=== PATIENT | female | born 1995 | race African-American/Black ===

== ENCOUNTER 2019-04-19 18:55 | Emergency (ER) | payer BC ==
--- OUTSIDE RECORDS SUMMARY | 2019-04-19 18:57 | XMS REPORT ---
:1995 [facility] [address] Renteria [address] [place] [id number] Care Team Providers Name Role Phone Unavailable Unavailable Unavailable Problems This patient has no known problems. Allergies, Adverse Reactions, Alerts This patient has no known allergies or adverse reactions. Medications This patient has no known medications. Encounters Start End Encounter Admission Attending Care Care Encounter Date/Time Date/Time Type Type Clinicians Facility Department ID 2019-02-28 2019-02-28 Emergency E [facility] [id number] 20:30:00 20:30:00
[2019-04-19] MEDS ORDERED: NA CHLORIDE 0.9% 1,000 ML ONE (19:14)
[2019-04-19] MEDS ORDERED: PANTOPRAZOLE 40 MG INJ ONE (19:14)
[2019-04-19 19:26] LABS: Absolute Lymphocytes (CBC) 1.5 K/uL (0.7-4.9); Absolute Monocytes 0.7 K/uL (0.1-1.3); Absolute Neutrophil 9.5 K/uL (1.8-8.0); Basophils % 0.4 % (0-1.3); Eosinophils % 0.3 % (0-4.4); Hematocrit 28.9 % (36.0-45.0); MPV 11.1 fL (7.6-11.3); Monocytes % 6.3 % (3.3-12.3); RBC Red Blood Cell Count 3.59 M/uL (3.86-4.86)
[2019-04-19] MEDS ORDERED: ONDANSETRON 4 MG/2 ML VIAL ONE (19:26)
[2019-04-19 19:27] LABS: Protime INR 1.27
--- NOTE | 2019-04-19 19:36 | RAD REPORT ---
EXAM DESCRIPTION: RAD - Chest Single View - 04/19/2019 7:19 pm CLINICAL HISTORY: CHEST PAIN Chest pain. COMPARISON: <Comparisons> FINDINGS: Portable technique limits examination quality. The lungs are grossly clear. The heart is normal in size. No displaced fractures. IMPRESSION: No acute intrathoracic process suspected.
[2019-04-19 19:44] LABS: ALT/SGPT 154 U/L (12-78); AST/SGOT 93 U/L (15-37); Albumin 3.3 g/dL (3.4-5.0); Alkaline Phosphatase 293 U/L (45-117); BUN Blood Urea Nitrogen 26 mg/dL (7-18); Bicarbonate 21 mmol/L (21-32); Bilirubin Direct 0.4 mg/dL (0-0.2); Bilirubin Total 1.3 mg/dL (0.2-1.0); Glucose Level 117 mg/dL (74-106); Lipase 111 U/L (73-393); Magnesium 2.1 mg/dL (1.8-2.4); Potassium 4.3 mmol/L (3.5-5.1); Protein, Total 6.7 g/dL (6.4-8.2); Sodium Level 142 mmol/L (136-145); Troponin (Emerg Dept Use Only) < 0.02 ng/mL (0.0-0.045)
[2019-04-19 19:47] LABS: NT PRO-BNP < 5 pg/mL (<125)
--- NOTE | 2019-04-19 23:17 | ER ---
Nurse's Notes [facility] Name: Ya Mckeon Age: 23 yrs Sex: Female : 1995 Arrival Date: 04/19/2019 Time: 19:00 Bed 7 Private MD: Diagnosis: Hematemesis Presentation: 04/19 19:01 Presenting complaint: Vomiting blood since this afternoon, approx 500 ml bright red hb bloody vomitus noted in emesis bag upon presentation to ED. Transition of care: patient was not received from another setting of care. Onset of symptoms was April 19, 2019. Risk Assessment: Do you want to hurt yourself or someone else? Patient reports no desire to harm self or others. Care prior to arrival: None. 19:01 Method Of Arrival: Ambulatory hb 19:01 Acuity: SHANIQUE 2 hb 23:09 Initial Sepsis Screen: Does the patient meet any 2 criteria? No. Patient's initial mg2 sepsis screen is negative. Does the patient have a suspected source of infection? No. Patient's initial sepsis screen is negative. 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 - Social history:: Smoking status: Patient/guardian denies using tobacco, Patient/guardian denies using alcohol, street drugs, IV drugs. - Ebola Screening: : No symptoms or risks identified at this time. Screenin:30 Abuse screen: Denies threats or abuse. Denies injuries from another. Nutritional mg2 screening: No deficits noted. Tuberculosis screening: No symptoms or risk factors identified. Fall Risk IV access (20 points). Assessment: 19:26 General: Appears in no apparent distress. comfortable, Behavior is calm, cooperative. mg2 Pain: Complains of pain in abdomen Pain does not radiate. Pain currently is 8 out of 10 on a pain scale. Quality of pain is described as aching, Pain began gradually, since 8 am Is intermittent. Neuro: Level of Consciousness is awake, alert, obeys commands, Oriented to person, place, time, situation. Cardiovascular: Capillary refill < 3 seconds Patient's skin is warm and dry. Respiratory: Airway is patent Respiratory effort is even, unlabored, Respiratory pattern is regular, symmetrical. GI: Pt is actively vomiting dark red blood Reports vomiting, since 8 am. GI: Reports lower abdominal pain, upper abdominal pain. : No signs and/or symptoms were reported regarding the genitourinary system. EENT: No signs and/or symptoms were reported regarding the EENT system. Derm: Skin is intact, is healthy with good turgor, Skin is normal. Musculoskeletal: Circulation, motion, and sensation intact. Capillary refill < 3 seconds. 21:47 Reassessment: patient still in ct scan. mg2 21:59 Reassessment: Patient appears in no apparent distress at this time. Patient and/or mg2 family updated on plan of care and expected duration. Pain level reassessed. Patient is alert, oriented x 3, equal unlabored respirations, skin warm/dry/pink. 22:39 Reassessment: Patient appears in no apparent distress at this time. Patient and/or mg2 family updated on plan of care and expected duration. Pain level reassessed. Patient is alert, oriented x 3, equal unlabored respirations, skin warm/dry/pink. no complaints noted. 04/20 00:25 Reassessment: report given to [facility]. patient ws conversant, feeling mg2 better, GCS 15/15. Vital Signs: 04/19 19:01 BP 121 / 80; Pulse 143; Resp 16; Temp 98.1; Pulse Ox 100% on R/A; Weight 58.97 kg; mg2 Height 5 ft. 7 in. (170.18 cm); Pain 10/10; 21:03 BP 137 / 99; Pulse 103; Resp 18; Pulse Ox 100% on R/A; mg2 21:57 BP 110 / 61; Pulse 104; Resp 18; Pulse Ox 100% on R/A; Pain 5/10; mg2 22:35 BP 115 / 62; Pulse 102; Resp 18; Temp 98.1; Pulse Ox 100% on R/A; mg2 04/20 00:04 BP 130 / 66; Pulse 101; Resp 18; Temp 97.9(TE); Pulse Ox 100% on R/A; Pain 8/10; mg2 04/19 19:01 Body Mass Index 20.36 (58.97 kg, 170.18 cm) mg2 ED Course: 04/19 19:00 Patient arrived in ED. ch 19:01 Triage completed. hb 19:01 Arm band placed on. hb 19:04 Trey Mario PA is PHCP. [facility] 19:04 Melvin Isbell MD is Attending Physician. [facility] 19:06 Ian Bean, RN is Primary Nurse. mg2 19:18 XRAY Chest (1 view) In Process Unspecified. EDMS 19:30 No provider procedures requiring assistance completed. Inserted saline lock: 18 gauge mg2 in right antecubital area, using aseptic technique. Blood collected. 21:45 CT Chest For PE Angio In Process Unspecified. EDMS 21:48 CT Abd/Pelvis - IV Contrast Only In Process Unspecified. EDMS 23:09 Patient has correct armband on for positive identification. mg2 04/20 00:27 Patient transferred, IV remains in place. mg2 Administered Medications: 04/19 19:06 Drug: NS 0.9% 1000 ml Route: IV; Rate: 1 bolus; Site: right antecubital; mg2 20:38 Follow up: Response: No adverse reaction; IV Status: Completed infusion; IV Intake: mg2 1000ml 19:06 Drug: ProTONIX 40 mg Route: IVP; Site: right antecubital; mg2 20:38 Follow up: Response: No adverse reaction; Marked relief of symptoms mg2 19:26 Drug: Zofran 4 mg Route: IVP; Site: right antecubital; mg2 20:38 Follow up: Response: No adverse reaction; Marked relief of symptoms mg2 23:33 Drug: Rocephin - (cefTRIAXone) 1 grams Route: IVPB; Infused Over: 30 mins; Site: right mg2 antecubital; 04/20 00:04 Follow up: Response: No adverse reaction; IV Status: Completed infusion mg2 04/19 23:34 Drug: Octreotide Infusion (50 mcg/hr) - (Octreotide 500 mcg, NS 0.9% 500 ml) Route: IV; mg2 Rate: 50 ml/hr; Site: right antecubital; 04/20 00:27 Follow up: Response: No adverse reaction; IV Status: Infusion continued upon transfer mg2 00:04 Drug: Zofran 4 mg Route: IVP; Site: right antecubital; mg2 00:27 Follow up: Response: No adverse reaction; Nausea is decreased mg2 Point of Care Testing: Urine : 04/19 20:53 hCG Reading: Negative; Control Reading: Positive; mg2 Intake: 20:38 IV: 1000ml; Total: 1000ml. mg2 Outcome: 23:17 ER care complete, transfer ordered by MD. smith 04/20 00:28 Transferred by ground EMS to [facility], Transfer form completed. mg2 Condition: stable Instructed on the need for transfer, Demonstrated understanding of instructions. 00:29 Patient left the ED. mg2 Signatures: Dispatcher [employer] Saira Groves, RN RN ch Trey Mario PA PA jmm Baxter, Heather, RN RN Ian Bean RN RN mg2 Corrections: (The following items were deleted from the chart) 04/19 23:35 19:01 BP 121 / 80; Pulse 143bpm; Resp 16bpm; Pulse Ox 100% RA; Temp 98.1F; Pain 10/10; mg2 hb
--- NOTE | 2019-04-19 23:18 | EDPHYS ---
Physician Documentation [facility] Name: Ya Mckeon Age: 23 yrs Sex: Female : 1995 Arrival Date: 04/19/2019 Time: 19:00 Bed 7 Private MD: ED Physician Melvin Isbell HPI: 04/19 19:05 This 23 yrs old Black Female presents to ER via Ambulatory with complaints of vomiting jmm blood. 19:05 The patient presents to the emergency department with vomiting, described as bright red jmm blood. Onset: The symptoms/episode began/occurred acutely. 19:05 Possible causes: unknown. This is a 23 year old female with a history of autoimmune jmm hepatitis that presents to the ED with vomiting bright red blood, chest pain, shortness of breath. Patient denies similar symptoms in the past. patient currently takes urosiol. . 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 - Social history:: Smoking status: Patient/guardian denies using tobacco, Patient/guardian denies using alcohol, street drugs, IV drugs. - Ebola Screening: : No symptoms or risks identified at this time. ROS: 19:05 Constitutional: Negative for fever, chills, and weight loss, Respiratory: Negative for jmm shortness of breath, cough, wheezing, and pleuritic chest pain. 19:05 Back: Negative for injury and pain, MS/Extremity: Negative for injury and deformity, Skin: Negative for injury, rash, and discoloration, Neuro: Negative for headache, weakness, numbness, tingling, and seizure. 19:05 Cardiovascular: Positive for chest pain. 19:05 Abdomen/GI: Positive for vomiting, hematemesis. 19:05 All other systems are negative. Exam: 19:05 Constitutional: This is a well developed, well nourished patient who is awake, alert, jmm and in no acute distress. Head/Face: atraumatic. Eyes: EOMI, no conjunctival erythema appreciated ENT: Moist Mucus Membranes Neck: Trachea midline, Supple Chest/axilla: Normal chest wall appearance and motion. Cardiovascular: Regular rate and rhythm. No edema appreciated Respiratory: Normal respirations, no respiratory distress appreciated 19:05 Back: Normal ROM Skin: General appearance color normal MS/ Extremity: Moves all extremities, no obvious deformities appreciated, no edema noted to the lower extremities Neuro: Awake and alert, normal gait Psych: Behavior is normal, Mood is normal, Patient is cooperative and pleasant 19:05 Abdomen/GI: Inspection: abdomen appears normal, Bowel sounds: normal, Palpation: abdomen is soft and non-tender. Vital Signs: 19:01 BP 121 / 80; Pulse 143; Resp 16; Temp 98.1; Pulse Ox 100% on R/A; Weight 58.97 kg; mg2 Height 5 ft. 7 in. (170.18 cm); Pain 10/10; 21:03 BP 137 / 99; Pulse 103; Resp 18; Pulse Ox 100% on R/A; mg2 21:57 BP 110 / 61; Pulse 104; Resp 18; Pulse Ox 100% on R/A; Pain 5/10; mg2 22:35 BP 115 / 62; Pulse 102; Resp 18; Temp 98.1; Pulse Ox 100% on R/A; mg2 04/20 00:04 BP 130 / 66; Pulse 101; Resp 18; Temp 97.9(TE); Pulse Ox 100% on R/A; Pain 8/10; mg2 04/19 19:01 Body Mass Index 20.36 (58.97 kg, 170.18 cm) mg2 MDM: 04/19 19:04 Patient medically screened. corie 23:16 Data reviewed: vital signs, nurses notes. Counseling: I had a detailed discussion with [facility] the patient and/or guardian regarding: the historical points, exam findings, and any diagnostic results supporting the discharge/admit diagnosis, radiology results, the need to transfer to another facility. ED course: I discussed the patient with Dr. Fischer whom accepted transfer. . 04/19 19:05 Order name: Basic Metabolic Panel; Complete Time: 19:57 [facility] 04/19 19:05 Order name: CBC with Diff; Complete Time: 19:57 [facility] 04/19 23:12 Interpretation: HGB 8.9. [facility] 04/19 19:05 Order name: LFT's; Complete Time: 19:57 [facility] 04/19 19:05 Order name: Magnesium; Complete Time: 19:57 [facility] 04/19 19:05 Order name: NT PRO-BNP; Complete Time: 19:57 [facility] 04/19 19:05 Order name: PT-INR; Complete Time: 19:57 [facility] 04/19 19:05 Order name: Troponin (emerg Dept Use Only); Complete Time: 19:57 [facility] 04/19 19:05 Order name: XRAY Chest (1 view); Complete Time: 19:39 [facility] 04/19 19:05 Order name: Lipase; Complete Time: 19:57 [facility] 04/19 19:05 Order name: Type And Screen; Complete Time: 20:45 [facility] 04/19 21:00 Order name: CT Chest For PE Angio [facility] 04/19 21:00 Order name: CT Abd/Pelvis - IV Contrast Only [facility] 04/19 19:05 Order name: EKG; Complete Time: 19:06 [facility] 04/19 19:05 Order name: Cardiac monitoring; Complete Time: 19:06 [facility] 04/19 19:05 Order name: EKG - Nurse/Tech; Complete Time: 19:07 [facility] 04/19 19:05 Order name: IV Saline Lock; Complete Time: 19:07 [facility] 04/19 19:05 Order name: Labs collected and sent; Complete Time: 19:07 [facility] 04/19 19:05 Order name: O2 Per Protocol; Complete Time: 19:07 [facility] 04/19 19:05 Order name: O2 Sat Monitoring; Complete Time: 19:07 [facility] 04/19 20:06 Order name: Urine Test (obtain specimen); Complete Time: 20:38 jmm Administered Medications: 19:06 Drug: NS 0.9% 1000 ml Route: IV; Rate: 1 bolus; Site: right antecubital; mg2 20:38 Follow up: Response: No adverse reaction; IV Status: Completed infusion; IV Intake: mg2 1000ml 19:06 Drug: ProTONIX 40 mg Route: IVP; Site: right antecubital; mg2 20:38 Follow up: Response: No adverse reaction; Marked relief of symptoms mg2 19:26 Drug: Zofran 4 mg Route: IVP; Site: right antecubital; mg2 20:38 Follow up: Response: No adverse reaction; Marked relief of symptoms mg2 23:33 Drug: Rocephin - (cefTRIAXone) 1 grams Route: IVPB; Infused Over: 30 mins; Site: right mg2 antecubital; 04/20 00:04 Follow up: Response: No adverse reaction; IV Status: Completed infusion mg2 04/19 23:34 Drug: Octreotide Infusion (50 mcg/hr) - (Octreotide 500 mcg, NS 0.9% 500 ml) Route: IV; mg2 Rate: 50 ml/hr; Site: right antecubital; 04/20 00:27 Follow up: Response: No adverse reaction; IV Status: Infusion continued upon transfer mg2 00:04 Drug: Zofran 4 mg Route: IVP; Site: right antecubital; mg2 00:27 Follow up: Response: No adverse reaction; Nausea is decreased mg2 Point of Care Testing: Urine : 04/19 20:53 hCG Reading: Negative; Control Reading: Positive; mg2 Disposition: 04/20 07:12 Co-signature as Attending Physician, Melvin Isbell MD I agree with the assessment and corie plan of care. Disposition: 04/19/19 23:17 Transfer ordered to [facility]. Diagnosis is Hematemesis. - Reason for transfer: Higher level of care. - Accepting physician is Amado. - Condition is Stable. - Problem is new. - Symptoms have improved. Signatures: Dispatcher [employer] EDMelvin Zimmer MD MD cha Mickail, Joel, PA PA Ian Monteiro RN RN mg2 Corrections: (The following items were deleted from the chart) 00:29 04/19 23:17 04/19/2019 23:17 Transfer ordered to [facility]. mg2 Diagnosis is Hematemesis. Reason for transfer: Higher level of care. Accepting physician is Amado. Condition is Stable. Problem is new. Symptoms have improved. sarah
[2019-04-19] MEDS ORDERED: CEFTRIAXONE/SWI 1gm 1 GM/10 ML SYR ONE (23:39)
[2019-04-19] MEDS ORDERED: NA CHLORIDE 0.9% 250 ML ONE (23:41)
[2019-04-19] MEDS ORDERED: OCTREOTIDE ACETATE 100 MCG/ML ONE (23:41)
[2019-04-20] MEDS ORDERED: ONDANSETRON 4 MG/2 ML VIAL ONE (00:14)
--- NOTE | 2019-04-20 07:16 | EKG ---
Test Date: 2019-04-19 Test Time: 18:59:06 Log Haul Operator: HB MEASUREMENT RESULTS: Intervals: Rate: 121 TN: 128 QRSD: 78 QT: 300 QTc: 426 Wilburn: P: 78 TN: 128 QRS: 76 T: 1 INTERPRETIVE STATEMENTS: Sinus tachycardia Nonspecific T wave abnormality Abnormal ECG No previous ECG available for comparison Electronically Signed On 04-20-19 07:15:32 CDT by Phillip Benedict
--- NOTE | 2019-04-20 10:50 | RAD REPORT ---
EXAM DESCRIPTION: CT Abdomen and Pelvis With Intravenous Contrast CLINICAL HISTORY: The patient is 23 years old and is Female; hematemesis TECHNIQUE: Axial computed tomography images of the abdomen and pelvis with intravenous contrast. S agittal and coronal reformatted images were created and reviewed. This CT exam was performed using one or more of the following dose reduction techniques: automated exposure control, adjustment of t he mA and/or kV according to patient size, and/or use of iterative reconstruction technique. COMPARISON: No relevant prior studies available. FINDINGS: LUNG BASES: Unremarkable. No mass. No consolidation. ABDOMEN: LIVER: The liver has a nodular contour. GALLBLADDER AND BILE DUCTS: No calcified stones. No ductal dilation. PANCREAS: No ductal dilation. No mass. SPLEEN: The spleen is enlarged. ADRENALS: Unremarkable. No mass. KIDNEYS AND URETERS: Unremarkable. No solid mass. No hydronephrosis. STOMACH AND BOWEL: Unremarkable. No obstruction. No mucosal thickening. PELVIS: APPENDIX: The appendix is normal in caliber without surrounding inflammation. BLADDER: The bladder is well distended. REPRODUCTIVE: Unremarkable as visualized. ABDOMEN and PELVIS: INTRAPERITONEAL SPACE: Unremarkable. No free air. No significant fluid collection. BONES/JOINTS: No acute fracture. SOFT TISSUES: The soft tissues are normal. VASCULATURE: Several splenic varices are present. A few small esophageal varices are present. No abdominal aortic aneurysm. LYMPH NODES: Unremarkable. No enlarged lymph nodes. IMPRESSION: 1. Nodular contour to the liver suggesting cirrhosis. 2. Splenomegaly with several splenic varices and suggestion of a few small esophageal varices. Find ings concerning for portal hypertension. Electronically signed by: Lidia Davenport MD 04/19/2019 10:21 PM CDT Due to temporary technical issues with the PACS/Fluency reporting system, reports are being signed by the in house radiologist as a courtesy to ensure prompt reporting. The interpreting radiologist is f ully responsible for the content of the report.
--- NOTE | 2019-04-20 10:51 | RAD REPORT ---
EXAM DESCRIPTION: CT Angiography Chest With Intravenous Contrast CLINICAL HISTORY: The patient is 23 years old and is Female; chest pain, hematemesis TECHNIQUE: Axial computed tomographic angiography images of the chest with intravenous contrast usin g pulmonary embolism protocol. Sagittal and coronal reformatted images were created and reviewed. This CT exam was performed using one or more of the following dose reduction techniques: automated exposure control, adjustment of the mA and/or kV according to patient size, and/or use of iterative reconstruction technique. MIP reconstructed images were created and reviewed. COMPARISON: No relevant prior studies available. FINDINGS: PULMONARY ARTERIES: Unremarkable. No pulmonary embolism. AORTA: No acute findings. No thoracic aortic aneurysm. LUNGS: Unremarkable. No mass. No consolidation. PLEURAL SPACE: Unremarkable. No significant effusion. No pneumothorax. HEART: Unremarkable. No cardiomegaly. No significant pericardial effusion. No evidence of RV dysfunction. BONES/JOINTS: No acute fracture. No dislocation. SOFT TISSUES: Unremarkable. LYMPH NODES: Unremarkable. No enlarged lymph nodes. IMPRESSION: Normal chest CTA. No pulmonary embolism. Electronically signed by: Lidia Davenport MD 04/19/2019 10:18 PM CDT Due to temporary technical issues with the PACS/Fluency reporting system, reports are being signed by the in house radiologist as a courtesy to ensure prompt reporting. The interpreting radiologist is kavon masonly responsible for the content of the report.
== END 2019-04-20 00:29 | disposition short-term general hospital (02) ==
LOC: ER 18:55
DX: K92.0 Hematemesis (principal); K75.4 Autoimmune hepatitis
CPT/HCPCS: 36415; 71045; 71275; 74177; 80048; 80076; 83690; 83735; 83880; 84484; 85025; 85610; 86850; 86900; 86901; 93005; 96361; 96365; 96375; 99285; C9113; J0696; J2354; J2405; J7030; Q9967

== ENCOUNTER 2021-06-10 10:41 | Emergency (ER) | payer BC, SELFPAY ==
--- NOTE | 2021-06-10 15:38 | ER ---
Nurse's Notes [facility] Name: Ya Mckeon Age: 25 yrs Sex: Female : 1995 Arrival Date: 06/10/2021 Time: 10:42 Bed 15 Private MD: Diagnosis: Coronavirus infection, unspecified Presentation: 06/10 12:04 Chief complaint: Patient states: Aching, chills, nasal congestion, no appetite, nausea kg starting 06/08. Tuesday at noon at something and 30 mins later started feeling bad. Denies fever at home. Coronavirus screen: Client denies travel out of the [place] in the last 14 days. At this time, unable to obtain information related to travel outside the [place] At this time, the client does not indicate any symptoms associated with coronavirus-19. Ebola Screen: Patient negative for fever greater than or equal to 101.5 degrees Fahrenheit, and additional compatible Ebola Virus Disease symptoms Patient denies exposure to infectious person. Patient denies travel to an Ebola-affected area in the 21 days before illness onset. 12:04 Method Of Arrival: Ambulatory kg 12:10 Initial Sepsis Screen: Does the patient meet any 2 criteria? No. Patient's initial kg sepsis screen is negative. Does the patient have a suspected source of infection? No. Patient's initial sepsis screen is negative. Risk Assessment: Do you want to hurt yourself or someone else? Patient reports no desire to harm self or others. Onset of symptoms was June 08, 2021. 12:10 Acuity: SHANIQUE 4 kg Triage Assessment: 12:07 General: Appears in no apparent distress. Behavior is calm, cooperative, appropriate kg for age, quiet. Pain: Complains of pain in Generalized Pain does not radiate. Pain currently is 7 out of 10 on a pain scale. at worst was 7 out of 10 on a pain scale. level that patient reports is acceptable is 5 out of 10 on a pain scale. Quality of pain is described as Stiff, soreness. 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 - Social history:: Smoking status: Patient denies any tobacco usage or history of. Screenin:09 Abuse screen: Denies threats or abuse. Denies injuries from another. Nutritional kg screening: No deficits noted. Tuberculosis screening: No symptoms or risk factors identified. Fall Risk None identified. No fall in past 12 months (0 pts). No secondary diagnosis (0 pts). No IV (0 pts). Ambulatory Aid- None/Bed Rest/Nurse Assist (0 pts). Gait- Normal/Bed Rest/Wheelchair (0 pts) Mental Status- Oriented to own ability (0 pts). Total Macias Fall Scale indicates No Risk (0-24 pts). Assessment: 14:19 General: Appears in no apparent distress. comfortable, Behavior is calm, cooperative, jd3 appropriate for age. Pain: Complains of pain in head and throat Quality of pain is described as aching. Neuro: Level of Consciousness is awake, alert, obeys commands, Oriented to person, place, time, situation. Cardiovascular: Denies chest pain, Capillary refill < 3 seconds Patient's skin is warm and dry. Respiratory: Reports cough that is persistent Airway is patent Respiratory effort is even, unlabored, Respiratory pattern is regular, symmetrical. GI: Abdomen is flat, non-distended, Abd is soft and non tender X 4 quads. Reports nausea. : No signs and/or symptoms were reported regarding the genitourinary system. EENT: No signs and/or symptoms were reported regarding the EENT system. Derm: Skin is intact, Skin is dry, Skin is normal, Skin temperature is warm. Musculoskeletal: Circulation, motion, and sensation intact. Range of motion: intact in all extremities. 15:24 Reassessment: Patient appears in no apparent distress at this time. No changes from jd3 previously documented assessment. Patient and/or family updated on plan of care and expected duration. Pain level reassessed. Patient is alert, oriented x 3, equal unlabored respirations, skin warm/dry/pink. 15:57 Reassessment: Patient appears in no apparent distress at this time. Patient and/or jd3 family updated on plan of care and expected duration. Pain level reassessed. Patient is alert, oriented x 3, equal unlabored respirations, skin warm/dry/pink. Vital Signs: 12:04 BP 133 / 91; Pulse 88; Resp 16; Temp 98.6; Pulse Ox 100% on R/A; Weight 53.52 kg (R); kg Height 5 ft. 7 in. (170.18 cm); Pain 7/10; 15:56 BP 133 / 78; Pulse 93; Resp 16 S; Pulse Ox 98% on R/A; jd3 12:04 Body Mass Index 18.48 (53.52 kg, 170.18 cm) kg ED Course: 10:42 Patient arrived in ED. am2 12:07 Arm band placed on right wrist. kg 12:09 Patient has correct armband on for positive identification. kg 12:09 Flu and/or RSV swab sent to lab. kg 12:11 Triage completed. kg 13:47 Tori Borden FNP-C is [facility]. kb 13:47 Josué Rosas MD is Attending Physician. kb 14:19 Ruddy Figueroa, RN is Primary Nurse. jd3 14:20 Warm blanket given. jd3 15:57 No provider procedures requiring assistance completed. Patient did not have IV access jd3 during this emergency room visit. Administered Medications: No medications were administered Outcome: 15:37 Discharge ordered by MD. kb 15:57 Discharged to home ambulatory, with family. jd3 15:57 Condition: stable 15:57 Discharge instructions given to patient, Instructed on discharge instructions, follow up and referral plans. Demonstrated understanding of instructions, follow-up care. 15:57 Patient left the ED. jd3 Signatures: Tori Borden FNP-C FNP-Flores Medina am2 Ruddy Figueroa, RN RN jd3 Cari Obrien RN RN kg
--- NOTE | 2021-06-10 15:38 | EDPHYS ---
Physician Documentation [facility] Name: Ya Mckeon Age: 25 yrs Sex: Female : 1995 Arrival Date: 06/10/2021 Time: 10:42 Bed 15 Private MD: ED Physician Josué Rosas HPI: 06/10 16:12 This 25 yrs old Black Female presents to ER via Ambulatory with complaints of covid kb symptoms. 16:13 The patient or guardian reports cough, that is intermittent, described as moderate, flu kb symptoms, arthralgias, low-grade fever, myalgias, no appetite. Onset: The symptoms/episode began/occurred 3 day(s) ago. Severity of symptoms: At their worst the symptoms were moderate, in the emergency department the symptoms are unchanged. Modifying factors: The symptoms are alleviated by nothing, the symptoms are aggravated by nothing. Associated signs and symptoms: Pertinent positives: fever, nausea, rhinorrhea, Pertinent negatives: chest pain, diarrhea, ear ache, vomiting. The patient has not experienced similar symptoms in the past. The patient has not recently seen a physician. Patient reports fever, chills, body aches, malaise, fatigue, decreased appetite, and nausea that started on Tuesday.. 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 - Social history:: Smoking status: Patient denies any tobacco usage or history of. ROS: 16:06 Neuro: Negative for headache, weakness, numbness, tingling, and seizure. kb 16:06 Constitutional: Positive for body aches, chills, fatigue, fever, malaise, poor PO intake. 16:06 ENT: Positive for rhinorrhea, sinus congestion. 16:06 Respiratory: Positive for cough, Negative for dyspnea on exertion, hemoptysis, orthopnea, pleurisy, shortness of breath, sputum production. 16:06 Abdomen/GI: Positive for nausea, Negative for abdominal pain, vomiting, diarrhea. 16:06 All other systems are negative. Exam: 16:14 Constitutional: This is a well developed, well nourished patient who is awake, alert, kb and in no acute distress. Head/Face: Normocephalic, atraumatic. ENT: Moist Mucous membranes Cardiovascular: Regular rate and rhythm with a normal S1 and S2. No gallops, murmurs, or rubs. No pulse deficits. Respiratory: Respirations even and unlabored. No increased work of breathing, no retractions or nasal flaring. Abdomen/GI: Soft, non-tender. No distention Skin: Warm, dry with normal turgor. Normal color. MS/ Extremity: Pulses equal, no cyanosis. Neurovascular intact. Full, normal range of motion. Neuro: Awake and alert, GCS 15, oriented to person, place, time, and situation. Moves all extremities. Normal gait. Psych: Awake, alert, with orientation to person, place and time. Behavior, mood, and affect are within normal limits. Vital Signs: 12:04 BP 133 / 91; Pulse 88; Resp 16; Temp 98.6; Pulse Ox 100% on R/A; Weight 53.52 kg (R); kg Height 5 ft. 7 in. (170.18 cm); Pain 7/10; 15:56 BP 133 / 78; Pulse 93; Resp 16 S; Pulse Ox 98% on R/A; jd3 12:04 Body Mass Index 18.48 (53.52 kg, 170.18 cm) kg MDM: 13:49 Patient medically screened. kb 15:37 Data reviewed: vital signs, nurses notes. Data interpreted: Pulse oximetry: on room air kb is 100 %. Interpretation: normal. Counseling: I had a detailed discussion with the patient and/or guardian regarding: the historical points, exam findings, and any diagnostic results supporting the discharge/admit diagnosis, lab results, the need for outpatient follow up, a family practitioner, to return to the emergency department if symptoms worsen or persist or if there are any questions or concerns that arise at home. 06/10 12:11 Order name: Flu; Complete Time: 15:33 kg 06/10 15:20 Order name: SARS-COV-2 RT PCR; Complete Time: 15:33 EDMS Administered Medications: No medications were administered Disposition: 16:41 Co-signature as Attending Physician, Josué Rosas MD. rn Disposition Summary: 06/10/21 15:37 Discharge Ordered Location: Home kb Condition: Stable kb Diagnosis - Coronavirus infection, unspecified kb Followup: kb - With: Emergency Department - When: As needed - Reason: Worsening of condition Followup: kb - With: Private Physician - When: 2 - 3 days - Reason: Recheck today's complaints, Continuance of care, Re-evaluation by your physician Discharge Instructions: - Discharge Summary Sheet kb - Viral Respiratory Infection, [id number] kb - COVID-19 kb Forms: - Medication Reconciliation Form kb - Thank You Letter kb - Antibiotic Education kb - Prescription Opioid Use kb - Work release form jd3 Signatures: Dispatcher [employer] EDMS Tori Borden, CYLINDER INSPECTOR-C CYLINDER INSPECTOR-Ckb Josué Rosas MD MD rn Graham, Kristen, RN RN kg Corrections: (The following items were deleted from the chart) 14:26 12:12 CORONAVIRUS+MR.LAB.BRZ ordered. EDSC EDSC
[2021-06-11 12:12] VITALS: TEMP 98.6
[2021-06-11 12:14] VITALS: BP 133/78; O2SAT 98
== END 2021-06-10 15:57 | disposition home or self-care (01) ==
LOC: ER 10:41
DX: U07.1 COVID-19 (principal); Z88.8 Allergy status to other drugs, medicaments and biological substances
CPT/HCPCS: 87804; 99283; U0003